=== PATIENT | female | born 1965 | race Caucasian/White ===

== ENCOUNTER 2022-05-08 03:20 | Emergency (ER) | payer BC, SELFPAY ==
[2022-05-08 03:25] VITALS: BP 186/107; PULSE 88; RESP 16; TEMP 36.4; O2SAT 97
[2022-05-08 03:30] VITALS: BP 180/104; PULSE 100; RESP 16; TEMP 36.4; O2SAT 98
--- NOTE | 2022-05-08 03:35 | XRR_ITS ---
PROCEDURE INFORMATION: Exam: XR Chest Exam date and time: 05/08/2022 3:42 AM Age: 57 years old Clinical indication: Cough TECHNIQUE: Imaging protocol: Radiologic exam of the chest. Views: 1 view. COMPARISON: No relevant prior studies available. FINDINGS: Lungs: No consolidation. Pleural spaces: Unremarkable. No pleural effusion. No pneumothorax. Heart/Mediastinum: No cardiomegaly. Bones/joints: No acute fracture. XR/XR chest 1V portable [id number] IMPRESSION: No acute findings.
--- NOTE | 2022-05-08 03:38 | ED_ITS ---
HPI - SOB/Dyspnea General: Chief Complaint: Shortness of Breath/Dyspnea Stated Complaint: sob Time Seen by Provider: 05/08/22 03:23 Source: patient Mode of arrival: ambulatory Limitations: no limitations History of Present Illness: HPI Narrative: 57-year-old female who states that she has been having a cough and congestion since states her cough is worsened tonight causing her to have some shortness of breath states her cough is dry in nature. 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 She denies any chest pain denies any fevers. Denies any worsening improving factors. Associated symptoms: Deny abdominal pain, chest pain, fever(s), nausea or vomiting Review of Systems Const: Reports: body aches and fatigue; Denies: fever(s), chills or change in appetite Eyes: Denies: blurry vision or eye discomfort ENMT: Denies: throat pain or dental pain Card: Denies: chest pain Resp: Reports: dyspnea and non-productive cough GI: Denies: abdominal pain, nausea, vomiting or diarrhea : Denies: dysuria Musc: Denies: neck pain or back pain Skin/Breast: Denies: rash Neuro: Denies: headache(s) Psych: Denies: depression Gregorio/Lymph: Denies: easy bruising All/Imm: Denies: urticaria PFSH ED PFSH: Medical History Asthma Surgical History H/O knee surgery H/O shoulder surgery History of hysterectomy Social History Smoking and tobacco status: former smoker History of recent travel: Yes Physical Exam Const: COMMON NORMALS: no acute distress, patient oriented x3 and healthy appearing HENMT: COMMON NORMALS: normocephalic and atraumatic HEAD & SCALP: normocephalic and atraumatic Eye: COMMON NORMALS: Equal, round and reactive pupils present and EOMs intact bilaterally PUPIL: Yes Equal, round and reactive pupils present Neck/C-Spine: COMMON NORMALS: full ROM and supple Chest: COMMONS NORMALS: normal inspection of the chest and normal palpation of entire chest wall Resp: COMMON NORMALS: normal respiratory effort, No retractions, No use of accessory muscles and clear to auscultation bilaterally AUSCULTATION: clear to auscultation bilaterally Cardio: COMMON NORMALS: regular rate, regular rhythm and No murmurs present (Cardio) RATE: regular rate RHYTHM: regular rhythm GI: COMMON NORMALS: Normal to inspection, nondistended, normoactive bowel sounds present, Soft to palpation, non-tender and no masses PALPATION: Yes Soft to palpation Extremity: COMMON NORMALS: normal to inspection and full ROM Neuro: COMMON NORMALS: patient oriented x3, moves all extremities and no focal motor deficits Psych: COMMON NORMALS: mental status grossly normal, Normal thought process present and cooperative THOUGHT PROCESS: Normal thought process present Skin: COMMON NORMALS: no rashes or lesions noted and no wounds GENERAL SKIN EXAM: no rashes or lesions noted Course Vital Signs: Vital signs: Vital Signs Temperature 97.6 F 05/08/22 03:59 Pulse Rate 105 H 05/08/22 03:59 Respiratory Rate 17 05/08/22 03:59 Blood Pressure 177/91 05/08/22 04:03 Pulse Oximetry 97 05/08/22 04:03 Oxygen Delivery Me thod 05/08/22 03:59 MDM - SOB/Dyspnea Medical Decision Making Patient presents here with bronchitis with increasing cough blood work x-ray here are normal we will start her on Keflex she is stable for discharge she is to follow-up PCP and return if worsening. Lab Data : 05/08/22 03:50 05/08/22 04:44 Labs/Radiology: Radiology Impressions Chest X-Ray 05/08/22 03:35 IMPRESSION: No acute findings. Laboratory Results WBC 7.8 10^3/uL (4.0-10.0) 05/08/22 03:50 RBC 4.97 10^6/uL (4.1-5.3) 05/08/22 03:50 Hgb 14.0 g/dL (11.5-15.3) 05/08/22 03:50 Hct 42.0 % (37.0-47.0) 05/08/22 03:50 MCV 84.5 fl (81-99) 05/08/22 03:50 MCH 28.2 pg (28.0-34.0) 05/08/22 03:50 MCHC 33.3 g/dL (30.0-36.0) 05/08/22 03:50 RDW 13.2 % (12.1-15.1) 05/08/22 03:50 Plt Count 203 10^3/cmm (130-400) 05/08/22 03:50 MPV 10.8 fL (7.4-10.4) H 05/08/22 03:50 Neut % (Auto) 69.5 % 05/08/22 03:50 Lymph % (Auto) 23.1 % 05/08/22 03:50 Boundary % (Auto) 4.3 % 05/08/22 03:50 Eos % (Auto) 2.3 % 05/08/22 03:50 Baso % (Auto) 0.4 % 05/08/22 03:50 Neut # (Auto) 5.43 10^3/uL (1.8-7.7) 05/08/22 03:50 Lymph # (Auto) 1.8 10^3/uL (0.8-4.8) 05/08/22 03:50 Boundary # (Auto) 0.3 10^3/uL (0.2-0.9) 05/08/22 03:50 Eos # (Auto) 0.2 10^3/uL (0.0-0.8) 05/08/22 03:50 Baso # (Auto) 0.0 10^3/uL (0.0-0.1) 05/08/22 03:50 Nucleated RBC % (auto) 0 % 05/08/22 03:50 Nucleated RBCs # 0.0 /100WBC 05/08/22 03:50 Sodium 142 mmol/L (136-145) 05/08/22 04:44 Potassium 4.1 mmol/L (3.5-5.1) 05/08/22 04:44 Chloride 105 mmol/L (98-107) 05/08/22 04:44 Carbon Dioxide 25 mmol/L (22-29) 05/08/22 04:44 Anion Gap 16.1 (5-19) 05/08/22 04:44 BUN 10 mg/dL (6-20) 05/08/22 04:44 Creatinine 0.7 mg/dL (0.5-0.9) 05/08/22 04:44 GFR Calculation 85.9 mL/min (90-130) L 05/08/22 04:44 Glucose 115 mg/dL (65-115) 05/08/22 04:44 Calculated Osmolality 294 mOsm/kg (285-295) 05/08/22 04:44 Calcium 9.3 mg/dL (8.5-10.5) 05/08/22 04:44 Total Bilirubin 0.3 mg/dL (0.15-1.2) 05/08/22 04:44 AST 14 U/L (0-32) 05/08/22 04:44 ALT 11 U/L (0-33) 05/08/22 04:44 Alkaline Phosphatase 80 U/L (35-105) 05/08/22 04:44 Total Protein 6.9 g/dL (6.6-8.7) 05/08/22 04:44 Albumin 4.5 g/dL (3.5-5.2) 05/08/22 04:44 Globulin 2.4 g/dL (1.3-4.6) 05/08/22 04:44 Influenza Type A Ag negative (Negative) 05/08/22 04:20 Influenza Type B Ag negative (Negative) 05/08/22 04:20 SARS-CoV-2 Ag (Rapid) negative (Negative) 05/08/22 04:20 Discharge Plan Discharge Patient Disposition: Home Clinical Impression: Bronchitis Condition: Stable Prescriptions: New cephalexin 500 mg capsule 500 mg PO TID 7 Days Qty: 21 0RF No Action cetirizine [Zyrtec] 10 mg tablet 10 mg PO DAILY PRN fexofenadine [Sharmila Allergy] 180 mg tablet 180 mg PO DAILY fluticasone propion-salmeterol [Advair Diskus] 250-50 mcg/dose blister with device 1 inh inhalation BID albuterol sulfate [ProAir HFA] 90 mcg/actuation HFA aerosol inhaler 2 puff inhalation Q6H PRN Discharge Orders: Discharge ED (Routine); Ordered 05/08/22 Ordered By: Merrill Ruvalcaba Discharge Diet: Advance as tolerated Discharge Activity: Resume usual activity Patient Instructions: Acute Bronchitis (ED) Coding Level of Care Code ED Residential [employer] Manager for Chg Fwd Exam Comprehensive
[2022-05-08] MEDS: dexamethasone 10 mg/mL INJ IVP (03:55)
[2022-05-08] MEDS: hyDRALAzine 20 mg/mL INJ 1 mL 10 MG IVP (03:55)
[2022-05-08 03:59] VITALS: BP 191/102; PULSE 105; RESP 17; TEMP 36.4; O2SAT 98
[2022-05-08 04:01] LABS: Basophils % 0.4 %; Eosinophils # 0.2 10^3/uL (0.0-0.8); Eosinophils % 2.3 %; Lymphocytes # 1.8 10^3/uL (0.8-4.8); Lymphocytes % 23.1 %; Mean Corpuscular HGB Conc 33.3 g/dL (30.0-36.0); Mean Corpuscular Hemoglobin 28.2 pg (28.0-34.0); Mean Corpuscular Volume 84.5 fl (81-99); Mean Platelet Volume 10.8 fL (7.4-10.4); Monocytes # 0.3 10^3/uL (0.2-0.9); Monocytes % 4.3 %; Neutrophils # 5.43 10^3/uL (1.8-7.7); Neutrophils % 69.5 %; Nucleated Red Blood Cells % 0 %; Platelet Count 203 10^3/cmm (130-400); Red Blood Count 4.97 10^6/uL (4.1-5.3); Red Cell Distribution Width 13.2 % (12.1-15.1); White Blood Count 7.8 10^3/uL (4.0-10.0)
[2022-05-08 04:03] VITALS: BP 177/91; O2SAT 97
[2022-05-08 04:44] LABS: Influenza A by IFA negative (Negative); Influenza B by IFA negative (Negative)
[2022-05-08 04:45] LABS: SARS Covid-2 Antigen negative (Negative)
[2022-05-08 05:10] LABS: Alanine Aminotransferase 11 U/L (0-33); Albumin Level 4.5 g/dL (3.5-5.2); Alkaline Phosphatase 80 U/L (35-105); Anion Gap 16.1 (5-19); Aspartate Amino Transferase 14 U/L (0-32); Blood Urea Nitrogen 10 mg/dL (6-20); Calcium 9.3 mg/dL (8.5-10.5); Carbon Dioxide 25 mmol/L (22-29); Chloride 105 mmol/L (98-107); Globulin 2.4 g/dL (1.3-4.6); Glomerular Filtration Rate 85.9 mL/min (90-130); Glucose 115 mg/dL (65-115); Osmolality Calculated 294 mOsm/kg (285-295); Potassium 4.1 mmol/L (3.5-5.1); Sodium 142 mmol/L (136-145); Total Bilirubin 0.3 mg/dL (0.15-1.2); Total Protein 6.9 g/dL (6.6-8.7)
[2022-05-08 05:24] VITALS: BP 177/95; PULSE 93; RESP 18; O2SAT 97
== END 2022-05-08 05:25 | disposition home or self-care (01) ==
PROVIDERS: Emergency Provider Emergency Medicine
DX: J40 Bronchitis, not specified as acute or chronic (principal); Z20.822 Contact with and (suspected) exposure to COVID-19; Z87.891 Personal history of nicotine dependence
CPT/HCPCS: 71045; 80053; 85025; 87426; 87804; 96374; 96375; 99285; J0360; J1100

== ENCOUNTER 2024-12-13 12:46 | Outpatient (RCR) | payer BC, SELFPAY | END 2024-12-21 23:59 | disposition home or self-care (01) | LOC: SOT 12:46 | PROVIDERS: Visit Provider Orthopaedic Surgery Hand Surgery | DX: S53.31XD Traumatic rupture of right ulnar collateral ligament, subsequent encounter (principal); X58.XXXD Exposure to other specified factors, subsequent encounter | CPT/HCPCS: 97022; 97110; 97140; 97165; 97530 ==

== ENCOUNTER 2024-12-22 05:00 | Outpatient (RCR) | payer BC, SELFPAY | END 2025-01-20 23:59 | disposition home or self-care (01) | LOC: SOT 05:00 | PROVIDERS: Visit Provider Orthopaedic Surgery Hand Surgery | DX: S63.641D Sprain of metacarpophalangeal joint of right thumb, subsequent encounter (principal); X58.XXXD Exposure to other specified factors, subsequent encounter | CPT/HCPCS: 97022; 97110; 97140 ==